=== PATIENT | male | born 1990 | race African-American/Black ===

== ENCOUNTER 2018-02-17 06:09 | Emergency (ER) | payer SELFPAY ==
[2018-02-17 06:25] VITALS: BP 145/74; PULSE 61; RESP 16; TEMP 98.4; O2SAT 99
--- NOTE | 2018-02-17 06:45 | PD ---
HPI Chief Complaint: Pain: Acute or Chronic Time Seen by Provider: 06:30 Travel History International Travel<30 days: No Contact w/Intl Traveler<30days: No Traveled to known affect area: No History of Present Illness HPI 27-year-old right-hand dominant black male presents emergency department complains of right shoulder pain after working out yesterday. He states that he has not been working out in quite some time. He performed a large amount of bench press, and overhead press activity. Patient states that he woke this morning with complaints of right shoulder pain. He has not been able to sleep on her shoulder. Pain is worse when he raises his hand over his head. He denies any numbness or tingling. Some relief with holding his arm still. Pain is mild to moderate. History Past Medical Histgory Medical History: Denies Significant Hx Past Surgical History Surgical History: No Previous Surgery Social History Alcohol Use: No Tobacco Use: No Allergies-Medications (Allergen,Severity, Reaction): Coded Allergies: No Known Allergies (Unverified , 02/17/18) Reported Meds & Prescriptions Reported Meds & Active Scripts Active No Active Prescriptions or Reported Medications Review of Systems General / Constitutional: No: Fever Eyes: No: Visual changes HENT: No: Headaches Cardiovascular: No: Chest Pain or Discomfort Respiratory: No: Shortness of Breath Gastrointestinal: No: Abdominal Pain Genitourinary: No: Dysuria Musculoskeletal: Positive: Arthralgias, Limited ROM, Pain, No: Edema Skin: No Rash Neurologic: No: Weakness Psychiatric: No: Depression Endocrine: No: Polydipsia Hematologic/Lymphatic: No: Easy Bruising Physical Exam Narrative GENERAL: This is a well-nourished, well-developed patient, in no apparent distress. SKIN: No rashes, ecchymoses or lesions. Warm and dry. HEAD: Atraumatic. Normocephalic. EYES: PERRL, EOMI, no discharge or injection. No scleral icterus. EARS: Clear NOSE: Nasal turbinates appear normal. THROAT: Mucosa pink and moist. Airway patent. NECK: Trachea midline. supple, moves head freely. LUNGS: Clear to auscultation. CV: Regular in rhythm. ABDOMEN: Soft nontender. EXT: No clubbing cyanosis or edema. Examination right upper extremity reveals pain in the glenohumeral joint on the right side. No pain in the clavicle, elbow, wrist or hand. He has intact median/ulnar/radial nerves. Patient has positive apprehension test. Negative drop test. Decreased range of motion due to pain. Data Data Last Documented VS Vital Signs Date Time Temp Pulse Resp B/P (MAP) Pulse Ox O2 Delivery O2 Flow Rate FiO2 02/17/18 06:25 98.4 61 16 145/74 (97) 99 MDM Medical Screen Exam Complete: Yes Emergency Medical Condition: No Differential Diagnosis Differential diagnosis: Sprain, strain, tendinitis, impingement syndrome Narrative Course A medical screening exam was performed: At the time of evaluation the presenting medical condition was determined not to be of an emergent nature. The patient was given the option of receiving additional care, but declined. Patient was given options for additional community resources from which to obtain care. The Patient Has Been advised to seek medical attention for their presenting complaint. The patient has been advised to return to the ER at any time if an emergent condition develops. Primary Impression: Medical screening exam Scripts No Active Prescriptions or Reported Meds Condition: Nithin Bledsoe Feb 17, 2018 06:45
== END 2018-02-17 06:46 | disposition left against medical advice (07) ==
LOC: NEPD 06:09
DX: M25.511 Pain in right shoulder (principal)
CPT/HCPCS: 99281